=== PATIENT | female | born 1985 | race African-American/Black ===

== ENCOUNTER 2025-01-02 20:54 | Inpatient (IN) | payer MEDICAID, OTHER ==
[~2025-01-02] VITALS: Ht 157.5 cm; Wt 63.1 kg
[2025-01-02 21:42] LABS: Basophils # (auto) 0.1 10 ^3/uL (0-0.2); Eosinophils # (auto) 0.1 10 ^3/uL (0-0.8); Eosinophils % (auto) 1.3 % (0.0-7.0); Hematocrit 42.8 % (36.0-46.0); Hemoglobin 13.7 g/dL (12.2-16.2); Lymphocytes # (auto) 3.1 10 ^3/uL (0.4-5.4); Lymphocytes % (auto) 45.8 % (10.0-50.0); Mean Corpuscular Hemoglobin 29.3 pg (28.0-32.0); Mean Corpuscular Hgb Conc. 32.1 g/dL (32.0-36.0); Mean Corpuscular Volume 91.4 fL (80.0-100.0); Monocytes # (auto) 0.4 10 ^3/uL (0-1.3); Monocytes % (auto) 6.4 % (0.0-12.0); Neutrophils # (auto) 3.1 10 ^3/uL (1.6-8.6); Neutrophils % (auto) 45.5 % (37.0-80.0); Nucleated Red Blood Cells % 0.1 %; Platelet Count (auto) 374 10^3/uL (140-450); Red Blood Cells 4.68 10^6/uL (4.0-5.20); Red Cell Distribution Width 12.2 % (11.8-14.3); White Blood Cell 6.9 10^3/uL (4.4-10.8)
--- NOTE | 2025-01-02 21:46 | ED.PDOC ---
GI ASSESSMENT HPI Comments 39-year-old female came to ER due to abdominal pain. Patient with history of GERD, status post hernia repair, cholecystectomy and hysterectomy. Has been having episodes of epigastric abdominal pain with bouts of nausea and vomiting and blackish stools for the past few weeks. Was seen by her PCP 2 weeks ago and was diagnosed with gastritis. Medications prescribed however offered no relief of the pain. Persistence of epigastric pain, worse after meals, radiating to the back, describe as sharp stabbing persisted, prompting patient to come to the ER Chief Complaint: Abdominal Pain Time Seen by MD: 21:44 Reviewed Notes: Nurses Notes Allergies: Coded Allergies: NO KNOWN ALLERGIES (Unverified , 01/02/25) Information Source: Patient Mode of Arrival: Ambulatory Review of Systems REVIEW OF SYSTEMS: No fever, no chills, or fatigue HEENT: No sore throat, no earache, no congestion, no neck pain. Cardiac: No chest pain. No palpitations. Lungs: No shortness of breath, no cough. GI: (+) nausea, (+) vomiting, (+) diarrhea, no constipation, (+) abdominal pain : No dysuria, frequency, or urgency. No hematuria. Musculoskeletal: No joint pain , no joint swelling, no extremity edema. Skin: No rash, no itching. Neuro: No headache, no dizziness, no weakness Vital Signs Vital Signs Date Time Temp Pulse Resp B/P (MAP) Pulse Ox O2 Delivery O2 Flow Rate FiO2 01/02/25 23:16 64 16 126/75 01/02/25 22:30 98 01/02/25 21:20 98.1 Physical Exam General: Awake, alert and oriented. No acute distress. Skin: Skin in warm, dry and intact. Appropriate color for ethnicity. Nailbeds pink with no cyanosis. HEENT: The head is normocephalic and atraumatic. Conjunctivae are clear without exudates or hemorrhage. Sclera is non-icteric. EOM are intact. No signs of nystagmus. Eyelids are normal in appearance without swelling or lesions. Oral mucosa is pink and moist Neck: The neck is supple with normal range of motion. No JVD. Cardiac: Heart rate and rhythm are normal. No murmurs, gallops, or rubs are auscultated. Respiratory: No signs of respiratory distress. Lung sounds are clear in all lobes bilaterally without rales, ronchi, or wheezes. Abdominal: Abdomen is soft, epigastric tenderness. Bowel sounds are present and normoactive in all four quadrants. Extremities: Upper and lower extremities are atraumatic in appearance without deformity or edema. Neurological: The patient is awake, alert and oriented to person, place, and time with normal speech. Speech is clear. There is no facial asymmetry. Psychiatric: Appropriate mood and affect. Good judgement and insight. No visual or auditory hallucinations. Past Medical History PAST MEDICAL HISTORY: GERD Surgical History: Cholecystectomy, Hernia Repair, Hysterectomy [employer] History: Denies all [employer]ING [employer] Hx Family History Family History: Reviewed,noncontributory to illness Social History Smoker: Non-Smoker Alcohol: Denies ETOH Use Drugs: Denies Drug Use Lives In: Home Was a procedure done? Was a procedure done?: No GI differential Dx Differential Diagnosis: Bowel Obstruction, Diverticular disease, Gastritis/PUD, Gastroenteritis, Hernia, Pancreatitis, UTI X-Ray, Labs, Meds, VS Vital Signs Date Time Temp Pulse Resp B/P (MAP) Pulse Ox O2 Delivery O2 Flow Rate FiO2 01/02/25 23:16 64 16 126/75 01/02/25 22:33 83 16 128/95 01/02/25 22:30 83 16 128/95 (106) 98 01/02/25 21:20 98.1 83 16 124/91 (102) 98 Lab Test 01/02/25 21:27 01/02/25 21:15 Range/Units Urine Color Yellow Yellow Urine Clarity Clear Clear Urine pH 5.5 5.0-9.0 Urine Specific [place] 1.026 1.001-1.035 Urine Protein Negative Negative Urine Ketones Trace Negative Urine Blood Negative Negative /uL Urine Nitrite Negative Negative Urine Bilirubin Negative Negative Urine Urobilinogen Normal Negative mg/dL Urine Leukocyte Esterase Negative Negative /uL Urine RBC 3 0 - 4 /hpf Urine Microscopic WBC 1 0-5 /HPF Urine Squamous Epithelial Cells Few <5 /hpf Urine Bacteria None seen None Seen /hpf Urine Mucus Few None Seen Urine Glucose Normal Normal mg/dL White Blood Count 6.9 4.4-10.8 10^3/uL Red Blood Count 4.68 4.0-5.20 10^6/uL Hemoglobin 13.7 12.2-16.2 g/dL Hematocrit 42.8 36.0-46.0 % Mean Corpuscular Volume 91.4 80.0-100.0 fL Mean Corpuscular Hemoglobin 29.3 28.0-32.0 pg Mean Corpuscular Hemoglobin Concent 32.1 32.0-36.0 g/dL Red Cell Distribution Width 12.2 11.8-14.3 % Platelet Count 374 140-450 10^3/uL Mean Platelet Volume 7.5 6.9-10.8 fL Neutrophils (%) (Auto) 45.5 37.0-80.0 % Lymphocytes (%) (Auto) 45.8 10.0-50.0 % Monocytes (%) (Auto) 6.4 0.0-12.0 % Eosinophils (%) (Auto) 1.3 0.0-7.0 % Basophils (%) (Auto) 1.0 0.0-2.0 % Neutrophils # (Auto) 3.1 1.6-8.6 10 ^3/uL Lymphocytes # (Auto) 3.1 0.4-5.4 10 ^3/uL Monocytes # (Auto) 0.4 0-1.3 10 ^3/uL Eosinophils # (Auto) 0.1 0-0.8 10 ^3/uL Basophils # (Auto) 0.1 0-0.2 10 ^3/uL Nucleated Red Blood Cells 0.1 % Prothrombin Time 10.3 9.3-11.8 sec Prothrombin Time INR 0.97 0.9-1.15 Sodium Level 139 136-145 mmol/L Potassium Level 3.5 3.5-5.1 mmol/L Chloride Level 104 98-107 mmol/L Carbon Dioxide Level 27 20-31 mmol/L Anion Gap 8 5-15 Blood Urea Nitrogen 9 9-23 mg/dL Creatinine 1.11 H 0.550-1.02 mg/dL Glomerular Filtration Rate Calc 65 >90 mL/min BUN/Creatinine Ratio 8.1 L 10.0-20.0 Serum Glucose 104 74-106 mg/dL Lactic Acid Level 1.2 0.4-2.0 mmol/L Calcium Level 10.2 8.7-10.4 mg/dL Total Bilirubin 0.9 0.2-1.0 mg/dL Aspartate Amino Transferase (AST) 21 13-40 U/L Alanine Aminotransferase (ALT) 25 7-40 U/L Alkaline Phosphatase 104 46-116 U/L Total Protein 7.9 5.7-8.2 g/dL Albumin 4.8 3.2-4.8 g/dL Lipase 59 H 12-53 U/L Current Medications Medications (Trade) Dose Ordered Sig/Ana María Route Start Time Stop Time Status Last Admin Morphine Sulfate 2 mg ONCE ONCE IV 01/02/25 21:45 01/02/25 21:47 DC 01/02/25 22:33 Ondansetron HCl (Zofran) 4 mg ONCE ONCE IV 01/02/25 21:45 01/02/25 21:47 DC 01/02/25 22:32 Pantoprazole Sodium (Protonix) 40 mg ONCE ONCE IV 01/02/25 22:45 01/02/25 22:46 DC 01/02/25 22:59 Time of 1ST Reevaluation: 21:39 Reevaluation 1ST: Unchanged Patient Education/Counseling: Diagnosis, Treatment Family Education/Counseling: No Family Present Departure 1 Departure Time of Disposition: 23:39 Impression: Primary Impression: Intractable abdominal pain Additional Impression: Melena Disposition: ADMITTED INPATIENT Condition: Stable Comments 39-year-old female with worsening epigastric abdominal pain associated with melena. Patient has history of hiatal hernia as well as esophagitis. Concern for ongoing upper GI bleed. Patient admitted for further treatment, evaluation, monitoring and GI consultation. Extensive evaluation was performed in attempt to identify or rule out: (See differential diagnosis section) The following tests were ordered, and results were reviewed by me: (See diagnostic results section) The following test were independently interpreted by me and discussed with the patient: N/A I reviewed and agreed with the following test results read by other providers: N/A I reviewed the following notes from the pt's past medical encounters: (None available at this time) Additional information was gathered from interviewing the following independent historians: N/A Discussion of management or test interpretation with external physician/other qualified health rn progressive care: N/A Addressed an acute or chronic illness that poses a threat to life or bodily function: Suspected GI bleed Decision regarding hospitalization or escalation of hospital level of care: Risk and benefits of admission for further treatment of patient's condition was considered. Due to patient's current clinical condition, high risk of decline and poor outcome if discharged and need for further inpatient management and monitoring, patient will be admitted to the hospital. Drug therapy requiring intensive monitoring for toxicity: IV contrast Parenteral controlled substances: N/A Decision regarding elective major surgery with identified patient or procedure risk factors: N/A Decision regarding emergency major surgery: N/A Decision not to resuscitate or to de-escalate care because of poor prognosis: N/ A Diagnosis or treatment significantly limited by social determinants of health: N/A Critical Care Note Critical Care Time?: No Stability Stability form required: No Heart Score Heart Score: Heart Score Response (Comments) Value History N/A 0 EKG N/A 0 Age N/A 0 Risk Factors N/A 0 Troponin N/A 0 Total 0 I personally scribed for RAJANI BLAKELY MD ([email or web address]) on 01/02/25 at 21:46. Electronically submitted by Elliot Gallegos ([email or web address]). RAJANI BLAKELY MD Jan 02, 2025 21:46
[2025-01-02] MEDS: IOHEXOL 300 MG/ML 100ML BOTTLE IJ ONE (21:47)
[2025-01-02 22:13] LABS: Alanine Aminotransferase 25 U/L (7-40); Albumin 4.8 g/dL (3.2-4.8); Alkaline Phosphatase 104 U/L (46-116); Anion Gap 8 (5-15); Aspartate Aminotransferase 21 U/L (13-40); BUN/Creatinine Ratio 8.1 (10.0-20.0); Bilirubin, Total 0.9 mg/dL (0.2-1.0); Blood Urea Nitrogen 9 mg/dL (9-23); Calcium 10.2 mg/dL (8.7-10.4); Carbon Dioxide 27 mmol/L (20-31); Chloride 104 mmol/L (98-107); Glucose 104 mg/dL (74-106); Sodium 139 mmol/L (136-145); Total Protein 7.9 g/dL (5.7-8.2)
[2025-01-02 22:15] LABS: Lipase 59 U/L (12-53); Potassium 3.5 mmol/L (3.5-5.1)
[2025-01-02 22:25] LABS: INR 0.97 (0.9-1.15); Prothrombin Time 10.3 sec (9.3-11.8)
[2025-01-02 22:29] LABS: Urine Bacteria None Seen /hpf (None Seen)
[2025-01-02] MEDS: ONDANSETRON HCL 4 MG/2 ML VIAL IV ONE (22:32)
[2025-01-02] MEDS: MORPHINE SULFATE INJ 2 MG/ml SYRG IV ONE (22:33)
[2025-01-02 22:41] LABS: Urine Blood Negative /uL (Negative); Urine Clarity Clear (Clear); Urine Color Yellow (Yellow); Urine Mucus FEW (None Seen); Urine Protein, UAD Negative (Negative); Urine Specific Gravity 1.026 (1.001-1.035); Urine Squamous Epithelial Cell FEW /hpf (<5); Urine Urobilinogen Normal (Negative); Urine WBC 1 /HPF (0-5); Urine pH 5.5 (5.0-9.0)
[2025-01-02] MEDS: PANTOPRAZOLE 40 MG/10 ML VIAL INJ IV ONE (22:59)
--- NOTE | 2025-01-02 23:21 | DVH ---
Exam: CT AB PEL WITH IV CON ONLY History: Severe epigastric abdominal pain, history of hiatal hernia Comparison Study: None Contrast: Type of contrast: Omnipaque 300 Contrast injected: 100 mL Contrast wasted: 0 TECHNIQUE: Multidetector CT of abdomen and pelvis with IV contrast. Radiation Dose Information: CT Dose: CTDI volume is 6.57 mGy. Dose-length product is 377.25 mGy*cm FINDINGS: lung bases demonstrate some evidence for interstitial edema. Heart is borderline in size lower esopha therese is unremarkable. Breasts appear to be symmetric. Adrenals and kidneys are normal. Spleen pancrea s unremarkable patient has hepatomegaly the liver measures 21.28 cm in span. There is a large stool b urden but there is no evidence for obstruction. The appendix is normal bones are unremarkable. Common bile duct measures 5 mm in diameter which is normal for age vertebral bodies are unremarkable. Patient apparently has had a hysterectomy and oophorectomy. No fluid collection is seen in the pelvis . There is no hiatal hernia but the mucosa of the cardia of the stomach is thickened. IMPRESSION: 1. Patient May have minimal interstitial edema in the lung bases. Heart size is borderline. There is hepatomegaly and moderately large stool burden. bones are normal The mucosa of the cardia of the stomach at the hiatus is thickened. Measures 8.8 mm in thickness whic h is abnormal. Follow-up endoscopy may be helpful
[2025-01-03] VITALS (8 sets, daily range): BP systolic 104–132; BP diastolic 68–83; PULSE 66–83; RESP 15–20; TEMP 97.4–98; O2SAT 94–100
--- NOTE | 2025-01-03 00:03 | DVH ---
EXAMINATION: AP portable chest radiograph CLINICAL HISTORY: Rule out pulmonary edema COMPARISON: None FINDINGS: Multiple necklaces obscure evaluation of the apices. No dominant consolidation in the visualized lung borja. No sizable pleural effusions or pneumothorax identified. The cardiomediastinal silhouette appears within normal limits given technique. IMPRESSION: Limited study. No definite evidence to indicate pulmonary edema at this time.
[2025-01-03] MEDS ORDERED: KETOROLAC TROMETH 30 MG/ML 1ML VIAL IV PRN (00:30)
[2025-01-03] MEDS ORDERED: PANTOPRAZOLE 40 MG/10 ML VIAL INJ IV ONE ×2 (00:45)
--- NOTE | 2025-01-03 01:09 | DVHHPRES ---
History of Present Illness Resident Creating Document: JAYA SINGH RESIDENT Reason for Visit: Severe abdominal pain History of Present Illness This is a 39-year-old female with a past medical history of hiatal hernia s/p repair (2021), severe gastritis, esophagitis, DVT and Bilateral PE presenting to the ED with a chief complaint of severe epigastric pain. According to patient, the epigastrics pain started 2 years ago prompting a visit to the hospital where she was diagnosed of hiatal hernia, and severe esophagitis and gastritis. Hernia repaired and she has been on PPI for awhile. Pain markedly improved although she does have intermittent episodes which were tolerable. However, for the past one month, she started having the epigastric pains again. She has been trying to manage it with her antacids or PPIs but even that does not work any more. This past week has been the worse she said with associated nausea and vomiting. With or without food she has abdominal pains. But with food the pain is unbearable. Patient also mentioned that since her hiatal hernia in 2021, she has been having loss stools. Given all these symptoms, patient presented for evaluation. Patient is hemodynamically stable. She denies hemoptysis, hematemesis, hematochezia, but positive for weight loss. She denies any family history of autoimmune disease such as Crohn's disease or Behcet's disease. PMHX:Hiatal hernia, Severe gastritis, esophagitis, Abnormal uterine bleed, allergies; DVT and Bilateral PE ( 3x). First DVT was due to OCP intake PSHX: Hernial repair, partial hysterectomy with oophorectomy SOCIAL Hx: lives at home with family and works FHx: RA in mother, HTN Medication: Xeralto, ?Ibuprofen Past Medical History See HPI Past Surgical History See HPI Review of Systems Constitutional: No: Fever, Chills, Sweats, Weakness, Malaise, Other Eyes: No: Pain, Vision change, Conjunctivae inflammation, Eyelid inflammation, Other, Redness ENT: No: Ear pain, Ear discharge, Nose pain, Nose discharge, Nose congestion, Mouth pain, Mouth swelling, Throat pain, Throat swelling, Other Respiratory: No: Cough, Dry, Shortness of breath, SOB with excertion, Wheezing, Hemoptysis, Pleuritic Pain, Sputum, Wheezing, Other Cardiovascular: No: Chest Pain, Palpitations, Orthopnea, Paroxysmal Noc. Dyspnea, Edema, Lt Headedness, Other Gastrointestinal: Nausea, Vomiting, Abdominal Pain; No: Diarrhea, Constipation, Melena, Hematochezia, Other Genitourinary: No Dysuria, No Frequency, No Incontinence, No Hematuria, No Retention, No Other Musculoskeletal: No: other, neck pain, shoulder pain, arm pain, back pain, hand pain, leg pain, foot pain Skin: No: Rash, Lesions, Jaundice, Bruising, Other Neurological: No: Weakness, Numbness, Incoordination, Change in speech, Confusion, Seizures, Other Allergies: Coded Allergies: Beef Allergy (Verified Allergy, Unknown, 01/03/25) Chicken Allergy (Verified Allergy, Unknown, 01/03/25) Pineapple (Verified Allergy, Unknown, 01/03/25) Pork Allergy (Verified Allergy, Unknown, 01/03/25) [place] (Verified Allergy, Unknown, 01/03/25) Exam Vital Signs Vital Signs Date Time Temp Pulse Resp B/P (MAP) Pulse Ox O2 Delivery O2 Flow Rate FiO2 01/02/25 23:16 64 16 126/75 01/02/25 22:30 98 01/02/25 21:20 98.1 Exam General Appearance: Alert, Oriented X3, Cooperative, moderate distress, limited mobility HEENT: Atraumatic, PERRLA, EOMI, Mucous membrane moist/pink Respiratory: Clear to auscultation, Normal air movement Cardiovascular: Regular rate, Normal S1, Normal S2, No murmurs, no chest wall tenderness Abdominal: NO distention but tenderness, bowel sounds present, no scars noted Extremities: No clubbing, No cyanosis, No edema, Normal pulses, No tenderness/swelling Skin: No rashes, No breakdown, No significant lesion Neuro: Normal gait, Normal speech, Strength at 5/5 X4 ext, Normal tone, Sensation intact, Cranial nerves 3-12 NL, Reflexes 2+ Psych/Mental Status: Mental status NL, Mood NL Labs/Xrays Labs Test 01/02/25 21:27 01/02/25 21:15 Range/Units Urine Color Yellow Yellow Urine Clarity Clear Clear Urine pH 5.5 5.0-9.0 Urine Specific [place] 1.026 1.001-1.035 Urine Protein Negative Negative Urine Ketones Trace Negative Urine Blood Negative Negative /uL Urine Nitrite Negative Negative Urine Bilirubin Negative Negative Urine Urobilinogen Normal Negative mg/dL Urine Leukocyte Esterase Negative Negative /uL Urine RBC 3 0 - 4 /hpf Urine Microscopic WBC 1 0-5 /HPF Urine Squamous Epithelial Cells Few <5 /hpf Urine Bacteria None seen None Seen /hpf Urine Mucus Few None Seen Urine Glucose Normal Normal mg/dL White Blood Count 6.9 4.4-10.8 10^3/uL Red Blood Count 4.68 4.0-5.20 10^6/uL Hemoglobin 13.7 12.2-16.2 g/dL Hematocrit 42.8 36.0-46.0 % Mean Corpuscular Volume 91.4 80.0-100.0 fL Mean Corpuscular Hemoglobin 29.3 28.0-32.0 pg Mean Corpuscular Hemoglobin Concent 32.1 32.0-36.0 g/dL Red Cell Distribution Width 12.2 11.8-14.3 % Platelet Count 374 140-450 10^3/uL Mean Platelet Volume 7.5 6.9-10.8 fL Neutrophils (%) (Auto) 45.5 37.0-80.0 % Lymphocytes (%) (Auto) 45.8 10.0-50.0 % Monocytes (%) (Auto) 6.4 0.0-12.0 % Eosinophils (%) (Auto) 1.3 0.0-7.0 % Basophils (%) (Auto) 1.0 0.0-2.0 % Neutrophils # (Auto) 3.1 1.6-8.6 10 ^3/uL Lymphocytes # (Auto) 3.1 0.4-5.4 10 ^3/uL Monocytes # (Auto) 0.4 0-1.3 10 ^3/uL Eosinophils # (Auto) 0.1 0-0.8 10 ^3/uL Basophils # (Auto) 0.1 0-0.2 10 ^3/uL Nucleated Red Blood Cells 0.1 % Prothrombin Time 10.3 9.3-11.8 sec Prothrombin Time INR 0.97 0.9-1.15 Sodium Level 139 136-145 mmol/L Potassium Level 3.5 3.5-5.1 mmol/L Chloride Level 104 98-107 mmol/L Carbon Dioxide Level 27 20-31 mmol/L Anion Gap 8 5-15 Blood Urea Nitrogen 9 9-23 mg/dL Creatinine 1.11 H 0.550-1.02 mg/dL Glomerular Filtration Rate Calc 65 >90 mL/min BUN/Creatinine Ratio 8.1 L 10.0-20.0 Serum Glucose 104 74-106 mg/dL Lactic Acid Level 1.2 0.4-2.0 mmol/L Calcium Level 10.2 8.7-10.4 mg/dL Total Bilirubin 0.9 0.2-1.0 mg/dL Aspartate Amino Transferase (AST) 21 13-40 U/L Alanine Aminotransferase (ALT) 25 7-40 U/L Alkaline Phosphatase 104 46-116 U/L Total Protein 7.9 5.7-8.2 g/dL Albumin 4.8 3.2-4.8 g/dL Lipase 59 H 12-53 U/L Assessment/Plan Assessment/Plan Assessment Severe abdominal pain rule out gastritis Severe abdominal pain rule out peptic ulcer History of DVT, first episode likely due to OCP History of unprovoked PE ( X3), 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 Subsequent were unprovoked Food allergies, she carries epi pen minimal interstitial edema in the lung bases. Hepatomegaly Thickened mucosa of the cardia of the stomach at the hiatus rule out cancer Chronic diarrhea, rule out Celiac disease Plan Pain management IV fluids Protonix 40 mg IV NPO Therapeutic lovenox Rule out causes of chronic disease including HIV, parasites, GI consult Discussed for more than 35 minute, full code Case and plan discussed with Dr. Colon Plan discussed with: Patient Date of Service: Jan 03, 2025 Billing Provider: CHANDRIKA COLON MD Common Visit Codes: [id number] INP/OBS CARE (HIGH) JAYA SINGH RESIDENT Jan 03, 2025 01:09 CHANDRIKA COLON MD Jan 03, 2025 17:02
[2025-01-03] MEDS: KETOROLAC TROMETH 30 MG/ML 1ML VIAL IV ONE (01:14)
[2025-01-03 02:07] LABS: Magnesium 2.3 mg/dL (1.6-2.6)
[2025-01-03 02:09] LABS: Phosphorus 3.9 mg/dL (2.4-5.1)
[2025-01-03 02:17] LABS: Amphetamine Screen, Urine Neg (NEGATIVE); Barbiturate Scree,Urine Neg (NEGATIVE); Benzodiazephine Screen, Urine Neg (NEGATIVE); Opiate Scree,Urine Neg (NEGATIVE); Phencyclidine Screen, Urine Neg (NEGATIVE)
[2025-01-03 02:18] LABS: Cannabinoid Screen, Urine Neg (NEGATIVE); Cocaine Screen, Urine Neg (NEGATIVE)
[2025-01-03] MEDS: SODIUM CHLORIDE 0.9% 1,000 ML IV ONE (02:30)
[2025-01-03] MEDS: MORPHINE SULFATE INJ 2 MG/ml SYRG IV PRN (02:45)
[2025-01-03] MEDS: ENOXAPARIN SOD 100 MG/1 ML SYRINGE SC ONE (02:45)
[2025-01-03] MEDS ORDERED: RIVA10TA PO (03:27)
[2025-01-03 06:18] LABS: Potassium 3.8 mmol/L (3.5-5.1); Sodium 140 mmol/L (136-145)
[2025-01-03 06:19] LABS: Anion Gap 7 (5-15); Calcium 9.4 mg/dL (8.7-10.4); Carbon Dioxide 25 mmol/L (20-31)
[2025-01-03 06:21] LABS: Basophils # (auto) 0.1 10 ^3/uL (0-0.2); Basophils % (auto) 0.9 % (0.0-2.0); Chloride 108 mmol/L (98-107); Eosinophils # (auto) 0.1 10 ^3/uL (0-0.8); Hematocrit 34.5 % (36.0-46.0); Hemoglobin 11.5 g/dL (12.2-16.2); Lymphocytes # (auto) 3.4 10 ^3/uL (0.4-5.4); Lymphocytes % (auto) 48.4 % (10.0-50.0); Mean Corpuscular Hemoglobin 30.9 pg (28.0-32.0); Mean Corpuscular Hgb Conc. 33.2 g/dL (32.0-36.0); Mean Corpuscular Volume 93.1 fL (80.0-100.0); Monocytes # (auto) 0.4 10 ^3/uL (0-1.3); Monocytes % (auto) 5.1 % (0.0-12.0); Neutrophils # (auto) 3.2 10 ^3/uL (1.6-8.6); Neutrophils % (auto) 44.6 % (37.0-80.0); Platelet Count (auto) 287 10^3/uL (140-450); Red Blood Cells 3.71 10^6/uL (4.0-5.20); White Blood Cell 7.1 10^3/uL (4.4-10.8)
[2025-01-03 06:24] LABS: BUN/Creatinine Ratio 10.9 (10.0-20.0); Blood Urea Nitrogen 10 mg/dL (9-23); Glucose 84 mg/dL (74-106); Lipase 30 U/L (12-53)
[2025-01-03] MEDS: SUCRALFATE 1 GM/10 ML ORAL SUSP PO SCH (10:30)
[2025-01-03] MEDS: LACTULOSE 20Gm/30ML SOLN PO SCH (11:32)
[2025-01-03] MEDS: ERGOCALCIFEROL 50,000 UNIT(1.25MG) CAP PO SCH (11:32)
[2025-01-03] MEDS: PANTOPRAZOLE 40 MG/10 ML VIAL INJ IV SCH (11:32)
[2025-01-03] MEDS: ENOXAPARIN SOD 100 MG/1 ML SYRINGE SC SCH (11:33)
[2025-01-03 11:50] LABS: INR 1.09 (0.9-1.15); Partial Thromboplastin Time 31.2 SEC (24.5-34.5); Prothrombin Time 11.5 sec (9.3-11.8)
[2025-01-03] MEDS: SODIUM CHLORIDE 0.9% 1,000 ML IV SCH (12:15)
--- NOTE | 2025-01-03 12:16 | DVHPNRES ---
Progress Note Date Seen: Jan 03, 2025 Resident Creating Document: NICO KENNEDY RESIDENT Medical Necessity Reason Pt with a Central, PICC or Fol: No Subjective Review of Systems Norm DanielsonyLaney a 39-year-old PMH severe gastritis, esophagitis, hiatal hernia status post repair, DVT, bilateral PE presented to the ED with the chief complaints epigastric pain 4 weeks. Patient reported in past she had epigastric pain 2 years ago, diagnosed with hiatal hernia, esophagitis and gastritis, underwent hernia repair in 2021 and then she is on famotidine and sucralfate but for past 4 weeks she has been experiencing same symptoms as previous initially intermittent but later it has been continuous pain associated with vomiting nausea and not relieved by the antacids. Patient does reports she have occasional diarrhea for 1 moth. On my assessment patient denies fever, recent travel, sick contacts, eating foot outside, chest pain, constipation , melena, hematochezia and other associated symptoms. PMH: Gastritis, esophagitis, hiatal hernia, SOB, DVT, PE PSH: Hiatal hernia repair, partial hysterectomy with oophorectomy Family history: Colon cancer in father and grandfather and blood clotting problems in her grandmother Personal history: Lives with family. Denies smoking, alcohol and other drug abuse Allergies: Environmental allergies and chicken, beef, pork, strawberries, pineapple Home medications: Xarelto, famotidine, sucralfate Patient seen and examined at the bedside. Patient is still complaining of abdominal pain and nauseous. CT abdominal pelvis showed thickening of mucosa of stomach. Consulted GI for further evaluation. Objective vital signs Vital Sign Date Time Temp Pulse Resp B/P (MAP) Pulse Ox O2 Delivery O2 Flow Rate FiO2 01/03/25 11:33 83 17 104/68 01/03/25 08:59 98.0 100 98.0 01/03/25 02:22 Room Air* 0 21 Total Intake and Output 01/02/25 01/02/25 01/03/25 15:00 23:00 07:00 Intake Total 0 ml Balance 0 ml medications Current Medications Medications Dose Ordered Sig/Ana María Route Start Time Stop Time Status Last Admin Dose Admin Pantoprazole Sodium 40 mg BID IV 01/03/25 10:00 01/03/25 11:32 40 MG Enoxaparin Sodium 50 mg Q12HR SC 01/03/25 10:00 01/03/25 11:33 50 MG Morphine Sulfate 1 mg Q6HP PRN IV 01/03/25 01:30 01/03/25 11:33 1 MG Ergocalciferol 50,000 unit Q7D PO 01/03/25 07:45 01/03/25 11:32 50,000 UNIT Lactulose 30 ml DAILY PO 01/03/25 10:00 01/03/25 11:32 30 ML Sucralfate 1 gm BID@0600,2200 PO 01/03/25 10:30 UNV Examination Pt is lying on bed General Appearance: Alert, Oriented X3, Cooperative,Moderate distress due to pain HEENT: Atraumatic, Mucous membranes dry Respiratory: Clear to auscultation, Normal air movement, No added sounds Cardiovascular: Regular rate, Normal S1, Normal S2, No murmurs Abdominal: Epigastric and mild suprapubic tenderness, hypoactive bowel sounds, Soft, no distention, no tenderness Extremities: No edema, Normal pulses, No tenderness/swelling Skin: No Significant rash, except past surgical scars Neuro: Normal speech, sensorimotor deficits none Psych/Mental Status: Mental status NL, Mood NL Nurse was there as sharperone during examination laboratory and microbiology Laboratory Tests 01/03/25 05:33 Test 01/03/25 05:33 Range/Units Serum Glucose 84 74-106 mg/dL Labs and/or images reviewed: Labs reviewed by me, Image(s) reviewed by me Problem List/Assessment/Plan Problem List/Assessment/Plan # ? Severe Esophagitis/Gastritis/Doudenitis # ? PUD - CT abdominal pelvis showed mucosa of the cardia of the stomach at the hiatus is thickened. Measures 8.8 mm in thickness which is abnormal. Follow-up endoscopy may be helpful - NPO status and IVF - Protonix, Carafate - ordered Gastrografin studies - GI cocktail -pending GI consult # Constipatin -CT- There is hepatomegaly and moderately large stool burden. bones are normal - lactulose for now # H/o DVT/PE - therapeutic Lovenox Protnix Lovenox NPO Goals of care discussed with the patient for more than 29 minutes: Full code status Case discussed with Dr. Armendariz, patient and nurse Plan discussed with: Patient My Orders My Orders Orders - NICO KENNEDY RESIDENT Procedure Category Date Status Time Ergocalciferol PHA 01/03/25 In Process (Vitamin D 50,000 07:45 Lactulose Oral PHA 01/03/25 In Process 10:00 Small Bowel Series-W XY 01/03/25 Logged Gastrogra 10:18 Sucralfate Susp PHA 01/03/25 In Process (Carafate Susp) 10:30 Sodium Chloride 0.9% PHA 01/03/25 In Process 12:15 Date of Service: Jan 03, 2025 Billing Provider: JERSON MACDONALD MD Common Visit Codes: [id number] INP/OBS CARE(HIGH) NICO KENNEDY RESIDENT Jan 03, 2025 12:16 JERSON MACDONALD MD Jan 05, 2025 23:52
--- NOTE | 2025-01-03 16:58 | DVHINCON2 ---
Date of service: Jan 03, [address] Alford Reason for Consultation Abdominal pain with nausea and vomiting History of Present Illness This 39-year-old female came to the emergency room with complaints of abdominal pain with nausea and vomiting and also some black stools Patient has history of hiatal hernia with repair in 2021 and history of GERD Denies any hematemesis or hematochezia Past Medical History History of GERD for which she had hiatal hernia surgery DVT history of bilateral pulmonary embolism Past Surgical History Hiatal hernia surgery partial hysterectomy oophorectomy Family History: Patient reports no known family medical history. Family History Noncontributory Social History Denies any smoking or drinking Allergies: Coded Allergies: Beef Allergy (Verified Allergy, Unknown, 01/03/25) Chicken Allergy (Verified Allergy, Unknown, 01/03/25) Pineapple (Verified Allergy, Unknown, 01/03/25) Pork Allergy (Verified Allergy, Unknown, 01/03/25) Fontana (Verified Allergy, Unknown, 01/03/25) Home Meds Reported Medications Rivaroxaban (XARELTO) 10 Mg Tab, 10 MG PO, TAB 01/03/25 Current Medications Current Medications Medications (Trade) Dose Ordered Sig/Ana María Route PRN Reason Start Time Stop Time Status Last Admin Ketorolac Tromethamine (Toradol Injection) 15 mg Q6HPRN PRN IV SEVERE PAIN (7-10 PAIN SCALE) 01/03/25 00:30 01/03/25 01:29 DC Pantoprazole Sodium (Protonix) 40 mg BID IV 01/03/25 10:00 01/03/25 11:32 Enoxaparin Sodium (Lovenox) 50 mg Q12HR SC 01/03/25 10:00 01/03/25 12:32 DC 01/03/25 11:33 Morphine Sulfate 1 mg Q6HP PRN IV SEVERE PAIN (7-10 PAIN SCALE) 01/03/25 01:30 01/03/25 11:33 Ergocalciferol (Vitamin D 50,000 Unit) 50,000 unit Q7D PO 01/03/25 07:45 01/03/25 11:32 Lactulose 30 ml DAILY PO 01/03/25 10:00 01/03/25 11:32 Sucralfate (Carafate Susp) 1 gm BID@0600,2200 PO 01/03/25 10:30 Sodium Chloride 1,000 ml @ 75 mls/hr [id number] IV 01/03/25 12:15 01/03/25 12:15 Enoxaparin Sodium (Lovenox) 60 mg Q12HR SC 01/03/25 22:00 Al Hydrox/Mg Hydrox/Simethicone (Maalox Plus) 15 ml Q8HP PRN PO FOR STOMACH DISTRESS 01/03/25 16:45 UNV Review of Systems Noncontributory Vital Signs Vital Signs Date Time Temp Pulse Resp B/P (MAP) Pulse Ox O2 Delivery O2 Flow Rate FiO2 01/03/25 13:00 98.0 68 16 110/77 (88) 97 98.0 01/03/25 08:00 Room Air* 0 21 Physical Exam Originally built and nourished female in no acute distress vital signs stable HEENT examination no pallor no icterus neck was supple no lymphadenopathy or thyromegaly Lungs clear Vascular examination is unremarkable Abdomen is soft no tenderness no rigidity no guarding except minimally in the epigastrium No masses Neuro grossly intact Labs/Diagnostic Data Labs Test 01/03/25 11:00 01/03/25 05:33 01/03/25 04:00 01/02/25 21:27 Range/Units Prothrombin Time 11.5 9.3-11.8 sec Prothrombin Time INR 1.09 0.9-1.15 Activated Partial Thromboplast Time 31.2 24.5-34.5 SEC White Blood Count 7.1 4.4-10.8 10^3/uL Red Blood Count 3.71 L 4.0-5.20 10^6/uL Hemoglobin 11.5 #L 12.2-16.2 g/dL Hematocrit 34.5 #L 36.0-46.0 % Mean Corpuscular Volume 93.1 80.0-100.0 fL Mean Corpuscular Hemoglobin 30.9 28.0-32.0 pg Mean Corpuscular Hemoglobin Concent 33.2 32.0-36.0 g/dL Red Cell Distribution Width 12.0 11.8-14.3 % Platelet Count 287 140-450 10^3/uL Mean Platelet Volume 7.3 6.9-10.8 fL Neutrophils (%) (Auto) 44.6 37.0-80.0 % Lymphocytes (%) (Auto) 48.4 10.0-50.0 % Monocytes (%) (Auto) 5.1 0.0-12.0 % Eosinophils (%) (Auto) 1.0 0.0-7.0 % Basophils (%) (Auto) 0.9 0.0-2.0 % Neutrophils # (Auto) 3.2 1.6-8.6 10 ^3/uL Lymphocytes # (Auto) 3.4 0.4-5.4 10 ^3/uL Monocytes # (Auto) 0.4 0-1.3 10 ^3/uL Eosinophils # (Auto) 0.1 0-0.8 10 ^3/uL Basophils # (Auto) 0.1 0-0.2 10 ^3/uL Nucleated Red Blood Cells 0.0 % Sodium Level 140 136-145 mmol/L Potassium Level 3.8 3.5-5.1 mmol/L Chloride Level 108 H 98-107 mmol/L Carbon Dioxide Level 25 20-31 mmol/L Anion Gap 7 5-15 Blood Urea Nitrogen 10 9-23 mg/dL Creatinine 0.92 0.550-1.02 mg/dL Glomerular Filtration Rate Calc 82 >90 mL/min BUN/Creatinine Ratio 10.9 10.0-20.0 Serum Glucose 84 74-106 mg/dL Calcium Level 9.4 8.7-10.4 mg/dL Lipase 30 12-53 U/L Beta HCG, Quantitative 0.2 L 1.5-4.2 mIU/mL HIV (1&2) Antibody Negative Negative Thyroid Stimulating Hormone (TSH) 1.85 0.55-4.78 uIU/mL Urine Color Yellow Yellow Urine Clarity Clear Clear Urine pH 5.5 5.0-9.0 Urine Specific [place] 1.026 1.001-1.035 Urine Protein Negative Negative Urine Ketones Trace Negative Urine Blood Negative Negative /uL Urine Nitrite Negative Negative Urine Bilirubin Negative Negative Urine Urobilinogen Normal Negative mg/dL Urine Leukocyte Esterase Negative Negative /uL Urine RBC 3 0 - 4 /hpf Urine Microscopic WBC 1 0-5 /HPF Urine Squamous Epithelial Cells Few <5 /hpf Urine Bacteria None seen None Seen /hpf Urine Mucus Few None Seen Urine Glucose Normal Normal mg/dL Urine Opiates Screen Neg NEGATIVE Urine Fentanyl Screen Neg NEGATIVE Urine Barbiturates Screen Neg NEGATIVE Urine Phencyclidine Screen Neg NEGATIVE Urine Amphetamines Screen Neg NEGATIVE Urine Benzodiazepines Screen Neg NEGATIVE Urine Cocaine Screen Neg NEGATIVE Urine Cannabinoids Screen Neg NEGATIVE Test 01/02/25 21:15 Range/Units Hemoglobin A1c 4.7 <5.7 % A1C Lactic Acid Level 1.2 0.4-2.0 mmol/L Phosphorus Level 3.9 2.4-5.1 mg/dL Magnesium Level 2.3 1.6-2.6 mg/dL Total Bilirubin 0.9 0.2-1.0 mg/dL Aspartate Amino Transferase (AST) 21 13-40 U/L Alanine Aminotransferase (ALT) 25 7-40 U/L Alkaline Phosphatase 104 46-116 U/L Total Protein 7.9 5.7-8.2 g/dL Albumin 4.8 3.2-4.8 g/dL Triglycerides Level 67 < 150 mg/dL Cholesterol Level 152 < 200 mg/dL LDL Cholesterol 81 < 100 mg/dL HDL Cholesterol 65 H 40-59 mg/dL Vitamin B12 Level 2897 H 211-911 pg/mL Vitamin D 25-Hydroxy 23.1 L 30.0-100 ng/mL Assessment A 39-year-old female with a history of GERD status post hiatal hernia repair with complaints of abdominal pain nausea vomiting and melanotic stool history of pulmonary embolism in the past physical examination with my except for minimal tenderness in the epigastrium Hemoglobin is 11.4 Possible impression is possible gastritis rule out ulcer disease Plan/Recommendation will recommend to treat with PPIs Follow the hemoglobin closely If significant bleeding may need endoscopic evaluation as necessary but for the time being we will recommend conservative treatment with PPIs and see the response Thank you Dr. Pierre Plan discussed with: Patient DALILA PIERRE MD Jan 03, 2025 16:58
--- NOTE | 2025-01-03 18:09 | DVH ---
Procedure: XY SMALL BOWEL SERIES-W GASTROGRA Reason for study/Clinical History: obstruction Comparison Study: None available at time of dictation. Technique: Single contrast small bowel series performed. Findings: Initial electrical drafter view of the abdomen and pelvis appears demonstrates no acute process. Contrast is identified within the colon and less than 40 minutes. This represents a normal small yesika l transit. time. No evidence for obstruction IMPRESSION: 1. No evidence for obstruction
[2025-01-03] MEDS: ENOXAPARIN SOD 60 MG/0.6 ML SYRINGE SC SCH (21:30)
[2025-01-04] MEDS: MAALOX PLUS or MAALOX 30 ML PO PRN (04:07)
[2025-01-04 05:00] VITALS: BP 102/50; PULSE 57; RESP 20; TEMP 97.9; O2SAT 96
[2025-01-04 08:14] LABS: Basophils # (auto) 0 10 ^3/uL (0-0.2); Basophils % (auto) 0.9 % (0.0-2.0); Eosinophils # (auto) 0.1 10 ^3/uL (0-0.8); Eosinophils % (auto) 1.3 % (0.0-7.0); Hematocrit 35.4 % (36.0-46.0); Hemoglobin 11.7 g/dL (12.2-16.2); Lymphocytes # (auto) 2.6 10 ^3/uL (0.4-5.4); Lymphocytes % (auto) 49.9 % (10.0-50.0); Mean Corpuscular Hemoglobin 29.9 pg (28.0-32.0); Mean Corpuscular Hgb Conc. 33.2 g/dL (32.0-36.0); Mean Corpuscular Volume 90.3 fL (80.0-100.0); Monocytes # (auto) 0.3 10 ^3/uL (0-1.3); Monocytes % (auto) 5.3 % (0.0-12.0); Neutrophils # (auto) 2.2 10 ^3/uL (1.6-8.6); Neutrophils % (auto) 42.6 % (37.0-80.0); Nucleated Red Blood Cells % 0.1 %; Platelet Count (auto) 294 10^3/uL (140-450); Red Blood Cells 3.92 10^6/uL (4.0-5.20); White Blood Cell 5.2 10^3/uL (4.4-10.8)
[2025-01-04 08:37] LABS: Alanine Aminotransferase 26 U/L (7-40); Albumin 3.8 g/dL (3.2-4.8); Alkaline Phosphatase 61 U/L (46-116); Anion Gap 8 (5-15); Aspartate Aminotransferase 23 U/L (13-40); BUN/Creatinine Ratio 9.7 (10.0-20.0); Bilirubin, Total 1.1 mg/dL (0.2-1.0); Blood Urea Nitrogen 10 mg/dL (9-23); Calcium 9.2 mg/dL (8.7-10.4); Carbon Dioxide 25 mmol/L (20-31); Glucose 82 mg/dL (74-106); Sodium 140 mmol/L (136-145); Total Protein 6.4 g/dL (5.7-8.2)
[2025-01-04 08:40] LABS: Chloride 107 mmol/L (98-107); Potassium 3.4 mmol/L (3.5-5.1)
[2025-01-04 09:00] VITALS: BP 108/69; PULSE 65; RESP 16; TEMP 97.6; O2SAT 99
[2025-01-04] MEDS: GASTROGRAFIN 120 ML SOL ONE (09:45)
--- NOTE | 2025-01-04 10:05 | DVHPNRES ---
Progress Note Date Seen: Jan 04, 2025 Resident Creating Document: NICO KENNEDY RESIDENT Medical Necessity Reason Pt with a Central, PICC or Fol: No Subjective Review of Systems Laney Webb a 39-year-old PMH severe gastritis, esophagitis, hiatal hernia status post repair, DVT, bilateral PE presented to the ED with the chief complaints epigastric pain 4 weeks. Patient seen and examined at the bedside . Patient is still complaining of abdominal pain even after Protonix and GI cocktail. Currently NPO. Yesterday GI senior billing consultant evaluated the patient, advised to do endoscopy after stopping her therapeutic Lovenox, currently not giving Lovenox, notified GI senior billing consultant for possible endoscopy today. Objective vital signs Vital Sign Date Time Temp Pulse Resp B/P (MAP) Pulse Ox O2 Delivery O2 Flow Rate FiO2 01/04/25 09:00 97.6 65 16 108/69 (82) 99 97.6 01/03/25 19:49 Room Air* 0 21 Total Intake and Output 01/03/25 01/03/25 01/04/25 15:00 23:00 07:00 Intake Total 135 ml 0 ml Balance 135 ml 0 ml medications Current Medications Medications Dose Ordered Sig/Ana María Route Start Time Stop Time Status Last Admin Dose Admin Pantoprazole Sodium 40 mg BID IV 01/03/25 10:00 01/04/25 09:45 40 MG Morphine Sulfate 1 mg Q6HP PRN IV 01/03/25 01:30 01/04/25 03:41 1 MG Ergocalciferol 50,000 unit Q7D PO 01/03/25 07:45 01/03/25 11:32 50,000 UNIT Lactulose 30 ml DAILY PO 01/03/25 10:00 01/03/25 11:32 30 ML Sucralfate 1 gm BID@0600,2200 PO 01/03/25 10:30 01/04/25 05:12 1 GM Sodium Chloride 1,000 ml @ 75 mls/hr [id number] IV 01/03/25 12:15 01/03/25 12:15 75 MLS/HR Enoxaparin Sodium 60 mg Q12HR SC 01/03/25 22:00 Al Hydrox/Mg Hydrox/Simethicone 15 ml Q8HP PRN PO 01/03/25 16:45 01/04/25 04:07 15 ML Examination Pt is lying on bed General Appearance: Alert, Oriented X3, Cooperative,Moderate distress due to pain HEENT: Atraumatic, Mucous membranes dry Respiratory: Clear to auscultation, Normal air movement, No added sounds Cardiovascular: Regular rate, Normal S1, Normal S2, No murmurs Abdominal: Epigastric and mild suprapubic tenderness, hypoactive bowel sounds, Soft, no distention, no tenderness Extremities: No edema, Normal pulses, No tenderness/swelling Skin: No Significant rash, except past surgical scars Neuro: Normal speech, sensorimotor deficits none Psych/Mental Status: Mental status NL, Mood NL Nurse Summer was there as hand candle molder during examination laboratory and microbiology Laboratory Tests 01/04/25 07:03 Test 01/04/25 07:03 Range/Units Serum Glucose 82 74-106 mg/dL Labs and/or images reviewed: Labs reviewed by me, Image(s) reviewed by me Problem List/Assessment/Plan Problem List/Assessment/Plan # ? Severe Esophagitis/Gastritis/Doudenitis # ? PUD - CT abdominal pelvis showed mucosa of the cardia of the stomach at the hiatus is thickened. Measures 8.8 mm in thickness which is abnormal. Follow-up endoscopy may be helpful - NPO status and IVF - Protonix, Carafate - GI cocktail - Gastrografin studies negative - Yesterday GI senior billing consultant evaluated the patient, advised to do endoscopy after stopping her therapeutic Lovenox, currently not giving Lovenox, notified GI senior billing consultant for possible endoscopy today. # Constipatin -CT- There is hepatomegaly and moderately large stool burden. bones are normal - lactulose for now # H/o DVT/PE - Hold therapeutic Lovenox until EGD - Protnix Lovenox NPO Goals of care discussed with the patient for more than 29 minutes: Full code status Case discussed with Dr. Colon, patient and nurse. Yesterday GI senior billing consultant evaluated the patient, advised to do endoscopy after stopping her therapeutic Lovenox, currently not giving Lovenox, notified GI senior billing consultant for possible endoscopy today. Plan discussed with: Patient My Orders My Orders Orders - NICO KENNEDY RESIDENT Procedure Category Date Status Time Small Bowel Series-W XY 01/03/25 Resulted Gastrogra 10:18 Sucralfate Susp PHA 01/03/25 In Process (Carafate Susp) 10:30 Sodium Chloride 0.9% PHA 01/03/25 In Process 12:15 Enoxaparin Sodium PHA 01/03/25 In Process (Lovenox) 22:00 Alum & Mag PHA 01/03/25 In Process Hydrox-Simethicone 16:45 Clear Liq Diet DIET 01/03/25 Transmitted Dinner Npo (Nothing By DIET 01/04/25 Transmitted Mouth) Diet Lunch Date of Service: Jan 04, 2025 Billing Provider: CHANDRIKA COLON MD Common Visit Codes: [id number] INP/OBS CARE(HIGH) LISA KENNEDYCristianSYLVIE RESIDENT Jan 04, 2025 10:05 CHANDRIKA COLON MD Jan 05, 2025 11:16
[2025-01-04 13:00] VITALS: BP 121/77; PULSE 61; RESP 14; TEMP 98.1; O2SAT 97
--- NOTE | 2025-01-04 15:09 | DVHPN2 ---
Progress Note - Dictate Date Seen: Jan 04, 2025 Medical Necessity Reason Pt with a Central, PICC or Fol: No Subjective Patient with continued with anorexia nausea unable to keep anything down Gastrografin studies were negative no hematemesis no melena patient was on Lovenox as Lovenox has been held today No hematemesis or melena Patient is status post hiatal hernia repair vital signs Vital Sign Date Time Temp Pulse Resp B/P (MAP) Pulse Ox O2 Delivery O2 Flow Rate FiO2 01/04/25 13:00 98.1 61 14 121/77 (92) 97 98.1 01/04/25 08:00 Room Air* 0 21 Total Intake and Output 01/03/25 01/03/25 01/04/25 15:00 23:00 07:00 Intake Total 135 ml 0 ml Balance 135 ml 0 ml medications Current Medications Medications Dose Ordered Sig/Ana María Route Start Time Stop Time Status Last Admin Dose Admin Pantoprazole Sodium 40 mg BID IV 01/03/25 10:00 01/04/25 09:45 40 MG Morphine Sulfate 1 mg Q6HP PRN IV 01/03/25 01:30 01/04/25 11:12 1 MG Ergocalciferol 50,000 unit Q7D PO 01/03/25 07:45 01/03/25 11:32 50,000 UNIT Lactulose 30 ml DAILY PO 01/03/25 10:00 01/03/25 11:32 30 ML Sucralfate 1 gm BID@0600,2200 PO 01/03/25 10:30 01/04/25 05:12 1 GM Sodium Chloride 1,000 ml @ 75 mls/hr [id number] IV 01/03/25 12:15 01/03/25 12:15 75 MLS/HR Enoxaparin Sodium 60 mg Q12HR SC 01/03/25 22:00 Al Hydrox/Mg Hydrox/Simethicone 15 ml Q8HP PRN PO 01/03/25 16:45 01/04/25 04:07 15 ML objective Abdomen soft nontender no masses bowel sounds normal laboratory and microbiology Laboratory Tests 01/04/25 07:03 Test 01/04/25 07:03 Range/Units Serum Glucose 82 74-106 mg/dL Assessment/Plan A 39-year-old female with a history of GERD status post hiatal hernia repair with complaints of abdominal pain nausea vomiting and melanotic stool history of pulmonary embolism in the past physical examination with my except for minimal tenderness in the epigastrium Hemoglobin is 11.4 Possible impression is possible gastritis rule out ulcer disease Patient continuing to have GI symptoms and unable to keep anything down Plan will recommend EGD evaluation in a.m. Procedure risks benefits alternatives all explained to the patient and agreeable for the same Thank you Dr. Pierre Plan discussed with: Patient DALILA PIERRE MD Jan 04, 2025 15:09
[2025-01-04] MEDS: POTASSIUM EFFERVESENT TAB 25 MEQ PO ONE (16:51)
[2025-01-04 17:00] VITALS: BP 121/90; PULSE 85; RESP 16; TEMP 97.7; O2SAT 99
[2025-01-04] MEDS: ACETAMINOPHEN 325 MG TAB PO PRN (17:18)
[2025-01-04 21:00] VITALS: BP 133/85; PULSE 79; RESP 20; TEMP 98.1; O2SAT 100
[2025-01-05] VITALS (11 sets, daily range): BP systolic 109–126; BP diastolic 75–85; PULSE 74–100; RESP 16–20; TEMP 97.8–98.6; O2SAT 97–100
[2025-01-05] MEDS ORDERED: SODIUM CHLORIDE LOCK 10 ML ONE ×2 (07:08→08:18)
[2025-01-05 07:10] LABS: Anion Gap 7 (5-15); Carbon Dioxide 25 mmol/L (20-31); Chloride 107 mmol/L (98-107); Potassium 3.7 mmol/L (3.5-5.1); Sodium 139 mmol/L (136-145)
[2025-01-05 07:11] LABS: Calcium 9.5 mg/dL (8.7-10.4)
[2025-01-05 07:16] LABS: BUN/Creatinine Ratio 6.2 (10.0-20.0); Blood Urea Nitrogen 6 mg/dL (9-23); Glucose 92 mg/dL (74-106)
[2025-01-05] MEDS: LIDOCAINE VISCOUS 2% 15ML UD ONE (09:01)
[2025-01-05] MEDS: MIDAZOLAM HCL 5 MG/ML-1ML VIAL ONE ×2 (09:03→09:16)
[2025-01-05] MEDS: fentaNYL CITRATE 100 MCG/2 ML VL ONE ×2 (09:03→09:16)
[2025-01-05] MEDS: diphenhdrAMINE HCL 50 MG/1 ML VL ONE (09:06)
--- NOTE | 2025-01-05 10:17 | DVHOP2 ---
Operative Report DATE OF PROCEDURE: 01/05/25 INDICATIONS FOR THE PROCEDURE abdominal pain persistent nausea vomiting status post hiatal hernia repair abnormal CT scan possible thickening of the gastroesophageal junction: PROCEDURE PERFORMED: 1. Esophagogastroduodenoscopy attempted but unsuccessful because of inability to sedate the patient with maximum possible sedation safely We will probably have to do under anesthesia sometime when anesthesia is available POSTOPERATIVE DIAGNOSIS: Unable to sedate the patient properly for evaluation INFORMED CONSENT: The risks and benefits and alternatives were explained to the patient and informed consent was obtained. PROCEDURE IN DETAIL: The patient was kept NPO after midnight. In the endoscopy room, she was given IV fentanyl 150 mcg and Versed 8 mg and Benadryl 50 may, titrated slowly to get her sedated. Patient could not be sedated properly at all and was still moving around and shaking the neck and head and try to pass the scope and hence procedure was abandoned. We will need to arrange with anesthesia and possible re-evaluation with anesthesia when available the procedue was cancelled Endoscopic impression unable to see since patient could not be sedated and scope could not be introduced Suggestions will recommend endoscopic evaluation with anesthesia MAC will recommend treatment with PPIs in the meanwhile If unable to do endoscopy we will recommend a repeat upper GI with special emphasis on the GE junction to evaluate this area thoroughly Thank you for asking me to take part in the care of this pleasant patient ENDOSCOPIC IMPRESSION: Unable to do the endoscopies since the patient could not be sedated with conscious sedation, Procedure canceled will need MAC SUGGESTIONS: We will recommend evaluation under MAC Thank you DALILA Betancourt MD Jan 05, 2025 10:17
--- NOTE | 2025-01-05 11:41 | DVHPNRES ---
Progress Note Date Seen: Jan 05, 2025 Resident Creating Document: ZHANNA GE RESIDENT Medical Necessity Reason Pt with a Central, PICC or Fol: No Subjective Review of Systems Patient was seen and examined on the bedside. She is alert oriented x3. Patient is scheduled for EGD today. Objective vital signs Vital Sign Date Time Temp Pulse Resp B/P (MAP) Pulse Ox O2 Delivery O2 Flow Rate FiO2 01/05/25 10:35 97.9 85 16 123/82 (96) 97 97.9 01/05/25 08:55 Nasal Cannula 5.0 01/05/25 08:55 100 Total Intake and Output 01/04/25 01/04/25 01/05/25 15:00 23:00 07:00 Intake Total 1400 ml 0 ml Balance 1400 ml 0 ml medications Current Medications Medications Dose Ordered Sig/Ana María Route Start Time Stop Time Status Last Admin Dose Admin Pantoprazole Sodium 40 mg BID IV 01/03/25 10:00 01/05/25 10:59 40 MG Morphine Sulfate 1 mg Q6HP PRN IV 01/03/25 01:30 01/04/25 11:12 1 MG Ergocalciferol 50,000 unit Q7D PO 01/03/25 07:45 01/03/25 11:32 50,000 UNIT Lactulose 30 ml DAILY PO 01/03/25 10:00 01/03/25 11:32 30 ML Sucralfate 1 gm BID@0600,2200 PO 01/03/25 10:30 01/04/25 05:12 1 GM Sodium Chloride 1,000 ml @ 75 mls/hr [id number] IV 01/03/25 12:15 01/05/25 01:42 75 MLS/HR Enoxaparin Sodium 60 mg Q12HR SC 01/03/25 22:00 Al Hydrox/Mg Hydrox/Simethicone 15 ml Q8HP PRN PO 01/03/25 16:45 01/04/25 04:07 15 ML Acetaminophen 650 mg Q4HP PRN PO 01/04/25 17:00 01/04/25 17:18 650 MG Examination Physical examination: General Appearance: Alert, Oriented X3, Cooperative, No acute distress HEENT: Atraumatic, PERRLA, EOMI, Mucous membrane moist/pink Respiratory: Clear to auscultation, Normal air movement Cardiovascular: Regular rate, Normal S1, Normal S2, No murmurs, no chest wall tenderness Abdominal: Normal bowel sounds, Soft, mild tenderness in the epigastric region, No hepatospenomegaly, No masses Extremities: No clubbing, No cyanosis, No edema, Normal pulses, No tenderness/swelling Skin: No rashes, No breakdown, No significant lesion Neuro: Normal gait, Normal speech, Strength at 5/5 X4 ext, Normal tone, Sensation intact, grossly intact cranial nerves Psych/Mental Status: Mental status NL, Mood NL laboratory and microbiology Laboratory Tests 01/05/25 06:10 01/04/25 07:03 Test 01/05/25 06:10 Range/Units Serum Glucose 92 74-106 mg/dL Labs and/or images reviewed: Labs reviewed by me, Image(s) reviewed by me Problem List/Assessment/Plan Problem List/Assessment/Plan Assessment and plan: # ? Severe Esophagitis/Gastritis/Doudenitis # ? PUD - CT abdominal pelvis showed mucosa of the cardia of the stomach at the hiatus is thickened. Measures 8.8 mm in thickness which is abnormal. Follow-up endoscopy may be helpful - NPO status and IVF - Protonix, Carafate - GI cocktail - Gastrografin studies negative - Scheduled for EGD today. # Slow transit constipation: -CT- There is hepatomegaly and moderately large stool burden. bones are normal - lactulose for now # H/o DVT/PE - Hold therapeutic Lovenox until EGD Protnix Lovenox NPO Goals of care discussed with the patient for more than 29 minutes: Full code status Plan discussed with: Patient, Other Date of Service: Jan 05, 2025 Billing Provider: CHANDRIKA REYES MD Common Visit Codes: [id number] INP/OBS CARE(HIGH) ZHANNA GE RESIDENT Jan 05, 2025 11:41 CHANDRIKA REYES MD Jan 05, 2025 14:54
[2025-01-05] MEDS ORDERED: fentaNYL CITRATE 100 MCG/2 ML VL ONE (12:27)
[2025-01-05] MEDS ORDERED: PROPOFOL 10 MG/ML 20 ML IV ONE (13:06)
--- NOTE | 2025-01-05 14:27 | DVHOP2 ---
Operative Report DATE OF PROCEDURE: 01/05/25 INDICATIONS FOR THE PROCEDURE: Abdominal pain nausea vomiting unable to keep anything down PROCEDURE PERFORMED: 1. Esophagogastroduodenoscopy biopsy by cold biopsy for POSTOPERATIVE DIAGNOSIS: Status post Batsheva fundoplication Mild esophagitis biopsies taken with cold biopsy Mild gastritis with erosions biopsies taken with cold biopsy forceps No strictures no ulcers no gastric outlet obstruction obstruction seen INFORMED CONSENT: The risks and benefits and alternatives were explained to the patient and informed consent was obtained. PROCEDURE IN DETAIL: The patient was kept Npo Since the patient could not be sedated with conscious sedation mac was used with the help of the anesthesiologist After sedation sedated with MAC Olympus gastroscope was passed through the oropharynx into the stomach and the duodenum, and the findings were as follows. Esophagus: Mild esophagitis LA classification B in the distal esophagus biopsies taken with cold biopsy forceps No ulcers no strictures no mass lesions seen Postsurgical changes of hiatal hernia (Batsheva Fundoplication) seen Obstruction no stasis Stomach: Fundus: Evidence of Batsheva fundoplication Body and antrum Edematous streaks suggestive of gastritis in the antrum with erosions biopsies taken with cold biopsy forceps Pylorus normal Duodenum Normal Endoscopic impression Status post Batsheva fundoplication with with mild esophagitis no strictures no masses seen biopsies taken with cold biopsy forceps Mild gastritis in the antrum biopsies taken with cold biopsy forceps Suggestions Await the biopsy results See treatment with PPIs Frequent meals In Case symptoms persist may need esophagogram and upper GI evaluation with esophageal and gastric motility studies Thank you for asking me to take part in the care of this pleasant patient DALILA Betancourt MD Jan 05, 2025 14:27
[2025-01-06 01:00] VITALS: BP 100/63; PULSE 73; RESP 18; TEMP 97.9; O2SAT 97
[2025-01-06 05:00] VITALS: BP 100/61; PULSE 67; RESP 18; TEMP 97.8; O2SAT 96
[2025-01-06 08:00] VITALS: PULSE 93; RESP 16; O2SAT 98
[2025-01-06 08:52] LABS: Hepatitis B Surface Antigen Negative (Negative)
[2025-01-06 09:03] VITALS: BP 128/81; PULSE 93; RESP 16; TEMP 97.9; O2SAT 98
[2025-01-06 09:38] LABS: Hepatitis A Ab IgM Negative; Hepatitis B Core IgM Negative (Negative)
[2025-01-06 09:39] LABS: Hepatitis C Antibody Negative (Negative)
[2025-01-06] MEDS: PANTOPRAZOLE 40 MG TAB PO SCH (10:00)
--- NOTE | 2025-01-06 10:06 | DVHPN2 ---
Progress Note Date Seen: Jan 06, 2025 Resident Creating Document: ZAINA WHITE RESIDENT Medical Necessity Reason Pt with a Central, PICC or Fol: No Subjective Review of Systems Patient seen and examined at bedside Patient continues to have nausea, denies any vomiting Reports good appetite Reports midepigastric pain better than when she 1st came in Last bowel movement was last night, watery Objective vital signs Vital Sign Date Time Temp Pulse Resp B/P (MAP) Pulse Ox O2 Delivery O2 Flow Rate FiO2 01/06/25 09:03 97.9 93 16 128/81 (97) 98 97.9 01/05/25 20:00 Room Air* 0 21 Total Intake and Output 01/05/25 01/05/25 01/06/25 15:00 23:00 07:00 Intake Total 1400 ml 236 ml Output Total 5 ml Balance 1395 ml 236 ml medications Current Medications Medications Dose Ordered Sig/Ana María Route Start Time Stop Time Status Last Admin Dose Admin Pantoprazole Sodium 40 mg BID IV 01/03/25 10:00 01/05/25 21:03 40 MG Morphine Sulfate 1 mg Q6HP PRN IV 01/03/25 01:30 01/04/25 11:12 1 MG Ergocalciferol 50,000 unit Q7D PO 01/03/25 07:45 01/03/25 11:32 50,000 UNIT Lactulose 30 ml DAILY PO 01/03/25 10:00 01/03/25 11:32 30 ML Sucralfate 1 gm BID@0600,2200 PO 01/03/25 10:30 01/06/25 05:18 1 GM Sodium Chloride 1,000 ml @ 75 mls/hr [id number] IV 01/03/25 12:15 01/06/25 06:14 75 MLS/HR Enoxaparin Sodium 60 mg Q12HR SC 01/03/25 22:00 Al Hydrox/Mg Hydrox/Simethicone 15 ml Q8HP PRN PO 01/03/25 16:45 01/04/25 04:07 15 ML Acetaminophen 650 mg Q4HP PRN PO 01/04/25 17:00 01/04/25 17:18 650 MG Examination General Appearance: Alert, Oriented X3, Cooperative, No acute distress HEENT: Atraumatic, PERRLA, EOMI, Mucous membrane moist/pink Respiratory: Clear to auscultation, Normal air movement Cardiovascular: Regular rate, Normal S1, Normal S2, No murmurs, no chest wall tenderness Abdominal: Normal bowel sounds, Soft, mild tenderness in the epigastric region, No hepatospenomegaly, No masses Extremities: No clubbing, No cyanosis, No edema, Normal pulses, No tenderness/swelling Skin: No rashes, No breakdown, No significant lesion Neuro: Normal gait, Normal speech, Strength at 5/5 X4 ext, Normal tone, Sensation intact, grossly intact cranial nerves Psych/Mental Status: Mental status NL, Mood NL laboratory and microbiology Laboratory Tests 01/05/25 06:10 01/04/25 07:03 Test 01/05/25 06:10 Range/Units Serum Glucose 92 74-106 mg/dL Labs and/or images reviewed: Labs reviewed by me, Image(s) reviewed by me Problem List/Assessment/Plan Problem List/Assessment/Plan Mild esophagitis GERD Gastritis s/p kelsie fundoplication intractable nausea and anorexia Plan: Await the biopsy results continue protonix encourage small, frequent meals In Case symptoms persist may need esophagogram and upper GI evaluation with esophageal and gastric motility studies Plan discusse with Dr. Vega Plan discussed with: Patient, Other (RN) Dietary Evaluation Review Comments: 1) If patient remains NPO > 7 days, consider EN/TPN to meet at least 75% estimated daily needs 2) If gut route is preferred, consider Vital AF 1.2 @ goal rate of mL/hr as tolerated. TF regimen will provide 1728 kcal, 108g Pro, and 1168 mL fluid per 24 hrs. Goal rate will meet ~ 93% estimated daily energy needs and exceeds estimated daily protein needs. 3) Advance to low-fat diet when medically feasible, pending [employer] approval 4) F/u with gastroenterology Expected Outcomes/Goals: 1) patient to receive nutrition within 7 days 2) labs and GI symptoms to improve 3) diet to advance 4) f/u in 3 days ZAINA WHITE RESIDENT Jan 06, 2025 10:06
[2025-01-06] MEDS ORDERED: PANT40T PO (11:09)
[2025-01-06] MEDS ORDERED: ERGO1CAP23 PO (11:09)
[2025-01-06] MEDS ORDERED: SUCR1SUS26 PO (11:09)
--- NOTE | 2025-01-06 11:41 | DVHDSRES ---
Discharge Summary Date of Admission Resident Creating Document: NICO KENNEDY RESIDENT Jan 03, 2025 at 00:21 Date of Discharge: Jan 06, 2025 Admitting Diagnosis Abdominal pain Labs/Diagnostic Data: Laboratory Results Test 01/05/25 06:10 01/04/25 07:03 01/03/25 17:31 01/03/25 11:00 Sodium Level 139 mmol/L (136-145) Potassium Level 3.7 mmol/L (3.5-5.1) Chloride Level 107 mmol/L (98-107) Carbon Dioxide Level 25 mmol/L (20-31) Anion Gap 7 (5-15) Blood Urea Nitrogen 6 mg/dL (9-23) Creatinine 0.97 mg/dL (0.550-1.02) Glomerular Filtration Rate Calc 77 mL/min (>90) BUN/Creatinine Ratio 6.2 (10.0-20.0) Serum Glucose 92 mg/dL (74-106) Calcium Level 9.5 mg/dL (8.7-10.4) White Blood Count 5.2 10^3/uL (4.4-10.8) Red Blood Count 3.92 10^6/uL (4.0-5.20) Hemoglobin 11.7 g/dL (12.2-16.2) Hematocrit 35.4 % (36.0-46.0) Mean Corpuscular Volume 90.3 fL (80.0-100.0) Mean Corpuscular Hemoglobin 29.9 pg (28.0-32.0) Mean Corpuscular Hemoglobin Concent 33.2 g/dL (32.0-36.0) Red Cell Distribution Width 12.0 % (11.8-14.3) Platelet Count 294 10^3/uL (140-450) Mean Platelet Volume 7.7 fL (6.9-10.8) Neutrophils (%) (Auto) 42.6 % (37.0-80.0) Lymphocytes (%) (Auto) 49.9 % (10.0-50.0) Monocytes (%) (Auto) 5.3 % (0.0-12.0) Eosinophils (%) (Auto) 1.3 % (0.0-7.0) Basophils (%) (Auto) 0.9 % (0.0-2.0) Neutrophils # (Auto) 2.2 10 ^3/uL (1.6-8.6) Lymphocytes # (Auto) 2.6 10 ^3/uL (0.4-5.4) Monocytes # (Auto) 0.3 10 ^3/uL (0-1.3) Eosinophils # (Auto) 0.1 10 ^3/uL (0-0.8) Basophils # (Auto) 0 10 ^3/uL (0-0.2) Nucleated Red Blood Cells 0.1 % Total Bilirubin 1.1 mg/dL (0.2-1.0) Aspartate Amino Transferase (AST) 23 U/L (13-40) Alanine Aminotransferase (ALT) 26 U/L (7-40) Alkaline Phosphatase 61 U/L (46-116) Total Protein 6.4 g/dL (5.7-8.2) Albumin 3.8 g/dL (3.2-4.8) Stool Occult Blood Negative (Negative) Stool Occult Blood Sample #3 (Negative) Stool for White Cells None seen Prothrombin Time 11.5 sec (9.3-11.8) Prothrombin Time INR 1.09 (0.9-1.15) Activated Partial Thromboplast Time 31.2 SEC (24.5-34.5) Test 01/03/25 05:33 01/03/25 04:00 01/02/25 21:27 01/02/25 21:15 Lipase 30 U/L (12-53) Beta HCG, Quantitative 0.2 mIU/mL (1.5-4.2) Hepatitis A IgM Antibody Negative Hepatitis B Surface Antigen Negative (Negative) Hepatitis B Core IgM Antibody Negative (Negative) Hepatitis C Antibody Negative (Negative) HIV (1&2) Antibody Negative (Negative) Thyroid Stimulating Hormone (TSH) 1.85 uIU/mL (0.55-4.78) Urine Color Yellow (Yellow) Urine Clarity Clear (Clear) Urine pH 5.5 (5.0-9.0) Urine Specific Huntley 1.026 (1.001-1.035) Urine Protein Negative (Negative) Urine Ketones Trace (Negative) Urine Blood Negative /uL (Negative) Urine Nitrite Negative (Negative) Urine Bilirubin Negative (Negative) Urine Urobilinogen Normal mg/dL (Negative) Urine Leukocyte Esterase Negative /uL (Negative) Urine RBC 3 /hpf (0 - 4) Urine Microscopic WBC 1 /HPF (0-5) Urine Squamous Epithelial Cells Few /hpf (<5) Urine Bacteria None seen /hpf (None Seen) Urine Mucus Few (None Seen) Urine Glucose Normal mg/dL (Normal) Urine Opiates Screen Neg (NEGATIVE) Urine Fentanyl Screen Neg (NEGATIVE) Urine Barbiturates Screen Neg (NEGATIVE) Urine Phencyclidine Screen Neg (NEGATIVE) Urine Amphetamines Screen Neg (NEGATIVE) Urine Benzodiazepines Screen Neg (NEGATIVE) Urine Cocaine Screen Neg (NEGATIVE) Urine Cannabinoids Screen Neg (NEGATIVE) Hemoglobin A1c 4.7 % A1C (<5.7) Lactic Acid Level 1.2 mmol/L (0.4-2.0) Phosphorus Level 3.9 mg/dL (2.4-5.1) Magnesium Level 2.3 mg/dL (1.6-2.6) Triglycerides Level 67 mg/dL (< 150) Cholesterol Level 152 mg/dL (< 200) LDL Cholesterol 81 mg/dL (< 100) HDL Cholesterol 65 mg/dL (40-59) Vitamin B12 Level 2897 pg/mL (211-911) Vitamin D 25-Hydroxy 23.1 ng/mL (30.0-100) Other Laboratory Tests 01/05/25 06:10 01/04/25 07:03 Brief Hx & Hospital Course: Laney Webb a 39-year-old PMH severe gastritis, esophagitis, hiatal hernia status post repair, DVT, bilateral PE presented to the ED with the chief complaints epigastric pain 4 weeks. Patient reported in past she had epigastric pain 2 years ago, diagnosed with hiatal hernia, esophagitis and gastritis, underwent hernia repair in 2021 and then she is on famotidine and sucralfate but for past 4 weeks she has been experiencing same symptoms as previous initially intermittent but later it has been continuous pain associated with vomiting nausea and not relieved by the antacids. Patient does reports she have occasional diarrhea for 1 moth. On my assessment patient denies fever, recent travel, sick contacts, eating foot outside, chest pain, constipation , melena, hematochezia and other associated symptoms Patient required hospital admission for further evaluation and management of severe epigastric pain.. CT abdominal pelvis showed mucosa of the cardia of the stomach at the hiatus is thickened. Measures 8.8 mm in thickness which is abnormal. Follow-up endoscopy may be helpful, there is hepatomegaly and moderately large stool burden. bones are normal. Ordered Gastrografin studies,Showed no abnormalities. Patient was continuously given Protonix, GI cocktail, Carafate. Continuously monitored the condition. Patient was switched to therapeutic Lovenox for possible EGD. GI trousseau consultant evaluated the patient and advised to undergo EGD, showe mild esophagitis and mild gastritis in the antrum biopsies taken with cold biopsy forceps, advised to continue PPIs with the frequent meals and advised in case symptoms persist may need esophagogram and upper GI evaluation with esophageal and gastric motility studies, outpatient follow up for the biopsy result. Patient condition was improved, it is stable to discharge home with the PPIs and Carafate. Patient was advised about healthy lifestyle modifications including diet and exercise and to follow up with PCP and GI after the discharge. Pt is lying on bed General Appearance: Alert, Oriented X3, Cooperative,Moderate distress due to pain HEENT: Atraumatic, Mucous membranes dry Respiratory: Clear to auscultation, Normal air movement, No added sounds Cardiovascular: Regular rate, Normal S1, Normal S2, No murmurs Abdominal: Improved epigastric tenderness, hypoactive bowel sounds, Soft, no distention Extremities: No edema, Normal pulses, No tenderness/swelling Skin: No Significant rash, except past surgical scars Neuro: Normal speech, sensorimotor deficits none Psych/Mental Status: Mental status NL, Mood NL Nurse was there as sharperone during examination Consults/Reason for consult GI for EGD Operations or Procedures DATE OF PROCEDURE: 01/05/25 INDICATIONS FOR THE PROCEDURE: Abdominal pain nausea vomiting unable to keep anything down PROCEDURE PERFORMED: 1. Esophagogastroduodenoscopy biopsy by cold biopsy for POSTOPERATIVE DIAGNOSIS: Status post Batsheva fundoplication Mild esophagitis biopsies taken with cold biopsy Mild gastritis with erosions biopsies taken with cold biopsy forceps No strictures no ulcers no gastric outlet obstruction obstruction seen INFORMED CONSENT: The risks and benefits and alternatives were explained to the patient and informed consent was obtained. PROCEDURE IN DETAIL: The patient was kept Npo Since the patient could not be sedated with conscious sedation mac was used with the help of the anesthesiologist After sedation sedated with MAC Olympus gastroscope was passed through the oropharynx into the stomach and the duodenum, and the findings were as follows. Esophagus: Mild esophagitis LA classification B in the distal esophagus biopsies taken with cold biopsy forceps No ulcers no strictures no mass lesions seen Postsurgical changes of hiatal hernia (Batsheva Fundoplication) seen Obstruction no stasis Stomach: Fundus: Evidence of Batsheva fundoplication Body and antrum Edematous streaks suggestive of gastritis in the antrum with erosions biopsies taken with cold biopsy forceps Pylorus normal Duodenum Normal Endoscopic impression Status post Batsheva fundoplication with with mild esophagitis no strictures no masses seen biopsies taken with cold biopsy forceps Mild gastritis in the antrum biopsies taken with cold biopsy forceps Suggestions Await the biopsy results See treatment with PPIs Frequent meals In Case symptoms persist may need esophagogram and upper GI evaluation with esophageal and gastric motility studies Thank you for asking me to take part in the care of this pleasant patient DALILA Betancourt MD CT abdominal pelvis showed mucosa of the cardia of the stomach at the hiatus is thickened. Measures 8.8 mm in thickness which is abnormal. Follow-up endoscopy may be helpful, there is hepatomegaly and moderately large stool burden. bones are normal. Gastrografin studies,Showed no abnormalities. Condition at Discharge: Stable Final Diagnosis/Problems List # Severe Esophagitis/Gastritis/Doudenitis # ? PUD # Constipatin # H/o DVT/PE Discharge Disposition: Home Discharge Instruct/Medications Diet: Regular Diet comment: Frequent meals Avoid caffeine Activity: No Restrictions, As Tolerated Follow Up/Referral: GI After 1 week Medications: Protonix 40 mg daily Carafate daily b.i.d. 10 ml Resume home medications Discharge Statement: "Patient was advised to return to the ER or call 911 if any headaches, dizziness, shortness of breath, chest pain, abdominal pain, bleeding, fevers, or worsening of medical condition. Patient was counseled about treatment plan, medications, possible side effects, patientverbalized understanding. All questions were answered to the best of my ability. This discharge took greater then 30 minutes in planning, reviewing documentation, counseling the patient, and discussing with other team members." ASSESSMENT ASSESSMENT Assessment Esophagitis and gastritis NICO KENNEDY RESIDENT Jan 06, 2025 11:41
[2025-01-06] MEDS ORDERED: MIDAZOLAM HCL 5 MG/ML-1ML VIAL IV ONE (12:29)
== END 2025-01-06 12:30 | disposition home or self-care (01) | DRG 241 ==
LOC: ER 20:54 → OVERFLOW 01-03 00:21 → EAST 01-03 02:22
PROVIDERS: ADMIT Student in an Organized Health Care Education/Training Program; ATTEND Emergency Medicine
PROC: 0DB78ZX Excision of Stomach, Pylorus, Via Natural or Artificial Opening Endoscopic, Diagnostic (ICD-10-PCS; 2025-01-05)
PROC: 0DB38ZX Excision of Lower Esophagus, Via Natural or Artificial Opening Endoscopic, Diagnostic (ICD-10-PCS; principal; 2025-01-05 08:55)
DX: K29.70 Gastritis, unspecified, without bleeding (principal); R16.0 Hepatomegaly, not elsewhere classified; K27.9 Peptic ulcer, site unspecified, unspecified as acute or chronic, without hemorrhage or perforation; K29.80 Duodenitis without bleeding; K92.1 Melena; K59.00 Constipation, unspecified; Z90.49 Acquired absence of other specified parts of digestive tract; Z90.710 Acquired absence of both cervix and uterus; Z86.711 Personal history of pulmonary embolism; Z91.014 Allergy to mammalian meats; Z91.018 Allergy to other foods; Z91.09 Other allergy status, other than to drugs and biological substances; Z79.899 Other long term (current) drug therapy; Z90.711 Acquired absence of uterus with remaining cervical stump; Z86.718 Personal history of other venous thrombosis and embolism; Z80.0 Family history of malignant neoplasm of digestive organs; K20.90 Esophagitis, unspecified without bleeding
CPT/HCPCS: 36415; 43239; 71045; 74177; 74250; 80048; 80053; 80061; 80074; 80307; 81001; 82270; 82306; 82607; 83036; 83605; 83690; 83735; 83986; 84100; 84443; 84702; 85025; 85048; 85610; 85730; 86703; 86850; 86900; 86901; 87177; 96374; 96375; G0378; J1885; J2250; J2405; J2470; J2704

== ENCOUNTER 2025-04-06 19:22 | Emergency (ER) | payer MEDICAID ==
[~2025-04-06] VITALS: Ht 157.5 cm; Wt 60.9 kg
[~2025-04-06 19:22] MED LIST: ERGO1CAP23 PO; PANT40T PO; RIVA10TA PO; SUCR1SUS26 PO
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
[2025-04-06] MEDS ORDERED: IBUP-1456 PO (20:55)
[2025-04-06] MEDS ORDERED: SILV1CRE82 TOP (20:55)
[2025-04-06 21:30] VITALS: BP 128/85; PULSE 78; RESP 16; TEMP 97.9; O2SAT 100
[2025-04-06] MEDS: SILVER SULFADIAZINE 1 % TOPICAL CREAM 50GM TOP ONE (21:33)
[2025-04-06] MEDS: KETOROLAC TROMETH 60MG/2ML VIAL IM ONE (21:33)
== END 2025-04-06 21:53 | disposition home or self-care (01) ==
LOC: ER 19:22
DX: T23.152A Burn of first degree of left palm, initial encounter (principal); T23.132A Burn of first degree of multiple left fingers (nail), not including thumb, initial encounter; K21.9 Gastro-esophageal reflux disease without esophagitis; Z98.890 Other specified postprocedural states; Z90.710 Acquired absence of both cervix and uterus; Z90.49 Acquired absence of other specified parts of digestive tract; Z79.899 Other long term (current) drug therapy; Z91.018 Allergy to other foods; X19.XXXA Contact with other heat and hot substances, initial encounter; Y93.G3 Activity, cooking and baking; Y92.89 Other specified places as the place of occurrence of the external cause; Y99.8 Other external cause status
CPT/HCPCS: 16020; 96372; 99283; J1885